=== PATIENT | female | born 1995 | race Caucasian/White ===

== ENCOUNTER 2017-02-01 00:58 | Emergency (ER) | payer MEDICAID ==
[2017-02-01 02:02] VITALS: BP 126/80
== END 2017-02-01 02:02 | disposition home or self-care (01) ==
LOC: ED 00:58
DX: H10.9 Unspecified conjunctivitis (principal); J02.9 Acute pharyngitis, unspecified

== ENCOUNTER 2019-01-19 21:01 | Emergency (ER) | payer MEDICAID ==
[2019-01-19 21:31] VITALS: Ht 165.1 cm
[2019-01-19 21:38] LABS: BASOPHIL % 0.4 % (0-2); PLATELET COUNT 310 x10^3mcL (130-400); RED CELL DISTRIBUTION WIDTH 15.4 % (11.5-14.5)
[2019-01-19 21:43] LABS: CALCIUM 9.1 mg/dL (8.5-10.1); CARBON DIOXIDE 29.9 mmol/L (21-32); CHLORIDE SERUM 105 mmol/L (98-107); CREATININE SERUM 0.8 mg/dL (0.6-1.0); GFR1 > 60 mL/min; GLUCOSE SERUM 84 mg/dL (74-106); POTASSIUM SERUM 4.1 mmol/L (3.5-5.1); SODIUM SERUM 141 mmol/L (136-145)
[2019-01-19 21:48] LABS: ALBUMIN 3.8 g/dL (3.4-5.0); ALKALINE PHOSPHATASE 110 U/L (46-116); ALT/SGPT 20 U/L (14-59); AST/SGOT 14 U/L (15-37); BILIRUBIN TOTAL 0.2 mg/dL (0.20-1.00); TOTAL PROTEIN, SERUM 8.2 g/dL (6.4-8.2)
[2019-01-20 00:05] VITALS: BP 133/81
== END 2019-01-20 00:05 | disposition home or self-care (01) ==
LOC: ED 21:01
DX: K64.8 Other hemorrhoids (principal)
CPT/HCPCS: 36415